=== PATIENT | male | born 1950 | race Caucasian/White ===

== ENCOUNTER → 2016-09-22 | Outpatient (CLI) | payer BC ==
[~2016-09-22] MED LIST: ERGO1CAP35 PO
[2016-09-22 13:15] LABS: BLOOD UREA NITROGEN 12 mg/dl (7-18); BUN/CREATININE RATIO 13.2 (10-20); CALCIUM 8.5 mg/dl (8.5-10.1); CARBON DIOXIDE 31 mmol/L (21-32); CHLORIDE 106 mmol/L (98-107); CREATININE 0.91 mg/dl (0.60-1.40); GLUCOSE 108 mg/dl (70-99); POTASSIUM 4.2 mmol/L (3.5-5.1); SODIUM 141 mmol/L (136-145)
[2016-09-22 13:18] LABS: CHOLESTEROL 127 mg/dl (0-200); CHOLESTEROL/HDL RATIO 2.8; HDL CHOLESTEROL 46 mg/dl; LDL CHOLESTEROL CALCULATED 59 mg/dl; TRIGLYCERIDES 112 mg/dl (0-150); VERY LOW DENSITY LIPOPROT CALC 22 mg/dl
== END | disposition home or self-care (01) ==
LOC: C.LABPVFM 08:09
PROVIDERS: ATTEND Nurse Practitioner
DX: G45.9 Transient cerebral ischemic attack, unspecified (principal); E78.5 Hyperlipidemia, unspecified; E55.9 Vitamin D deficiency, unspecified

== ENCOUNTER → 2016-12-03 | Outpatient (CLI) | payer BC ==
--- NOTE | 2016-12-03 13:07 | DIAGNOSTIC IMAGING REPORT ---
BILATERAL CAROTID DOPPLER STUDY HISTORY: Carotid stenosis I67.82 Chronic cerebral [id number] Carotid stenosis, asymptote COMPARISON: 03/29/2015 TECHNIQUE: Real-time, grayscale, and color Doppler sonography of the carotid arteries was performed. Imaging reviewed in the transverse and longitudinal planes. All measurements were calculated based on NASCET criteria. FINDINGS: Antegrade flow is seen in the bilateral vertebral arteries. The brachial pressures are hemodynamically similar. Moderate plaque formation bilaterally The peak systolic velocity within the right ICA is 151. The right systolic ratio is 1.5. The peak systolic velocity within the left ICA is 106. The left systolic ratio is 1.1. IMPRESSION: 1. 40-50 % narrowing right internal carotid artery. 2. Moderate narrowing right and left external carotid artery. 3. Findings are slightly progressive compared to the prior study 2014 Electronically signed by: Saul Sage M.D. 12/03/2016 1:06 PM Dictated Date/Time: 12/03/2016 12:56 PM
== END | disposition home or self-care (01) ==
LOC: C.ULTR 12:14
PROVIDERS: ATTEND Nurse Practitioner
DX: I65.21 Occlusion and stenosis of right carotid artery (principal); I67.82 Cerebral ischemia

== ENCOUNTER → 2017-05-22 | Outpatient (CLI) | payer BC ==
[2017-05-22 13:53] LABS: LYME DISEASE AB IGG POS (NEG); LYME DISEASE AB IGM POS (NEG)
== END | disposition home or self-care (01) ==
LOC: C.LABPVFM 07:58
PROVIDERS: ATTEND Nurse Practitioner Family
DX: M25.511 Pain in right shoulder (principal)

== ENCOUNTER → 2017-08-30 | Outpatient (CLI) | payer BC ==
[2017-08-30 18:02] LABS: BLOOD UREA NITROGEN 11 mg/dl (7-18); CALCIUM 8.8 mg/dl (8.5-10.1); CARBON DIOXIDE 27 mmol/L (21-32); CREATININE 0.92 mg/dl (0.60-1.40); GLUCOSE 90 mg/dl (70-99); SODIUM 139 mmol/L (136-145)
[2017-08-30 18:04] LABS: CHOLESTEROL 122 mg/dl (0-200); LDL CHOLESTEROL CALCULATED 52 mg/dl
== END | disposition home or self-care (01) ==
LOC: C.LABPVFM 15:22
PROVIDERS: ATTEND Nurse Practitioner
DX: H93.19 Tinnitus, unspecified ear (principal); E78.5 Hyperlipidemia, unspecified

== ENCOUNTER 2022-07-31 06:51 | Inpatient (IN) ==
--- NOTE | 2022-07-26 09:06 | Anesthesiology Consultation ---
Date of Service July 26, 2022 Assessment & Plan (1) Encounter for pre-operative examination: Plan - I contacted pt and he denies visual changes, dizziness, lightheadedness, numbness, weakness, speech changes. Case discussed with Dr. Molina in detail who advised pt is acceptable to proceed at current status without requiring further evaluation, testing or intervention from his standpoint. - COVID screening: Per armoured car escort on 07/26/2022: Travel screen negative, no known COVID-19 positive contacts or current COVID-19 related symptoms in past 2 weeks. To surgeon's discretion if preop COVID testing is needed. Chart Review Chart Review: Acceptable Risk for Surgery and Patient NOT seen in Pre Admission Testing History Surgery Operation Date: 07/31/22 07:30 Proposed Procedures p Robotic Laparoscopic Assisted Radical Retropubic Prostatectomy, Possible OPen Possible Pelvic Lymph Node Dissection - Yared Ortiz MD Height/Weight Height: 5 ft 11 in Weight: 95.254 kg Allergies Allergy/AdvReac Type Severity Reaction Status Date / Time No Known Drug Allergies Allergy Verified 07/26/22 08:03 Medications Home Medications Medication Instructions Recorded Confirmed Last Taken multivitamin 1 tab PO QAM 12/26/18 07/26/22 Unknown aspirin 81 mg tablet,delayed 81 mg PO QAM 03/04/19 07/26/22 Unknown release ascorbic acid (vitamin C) 500 mg 500 mg PO QAM 09/26/20 07/26/22 Unknown tablet (Vitamin C) atorvastatin 80 mg tablet 80 mg PO QAM 07/26/22 07/26/22 Unknown clopidogrel 75 mg tablet 75 mg PO QAM 07/26/22 07/26/22 Unknown Past Medical History Medical History (Updated 07/26/22 @ 09:02 by Jade Castellano PA-C) Acid reflux hx of and resolved Asymptomatic stenosis of right carotid artery > 70% stenosis right ICA 02/16/22 doppler, < 50% stenosis right ICA 04/02/22 doppler Basal cell carcinoma MOHS to right side of nose x2 Hx-TIA (transient ischemic attack) 2014, no f/u no residual Hyperlipidemia Lumbar pain with radiation down right leg Prostate cancer Sciatic leg pain Right leg Sensorineural hearing loss (SNHL) of both ears Past Family History Family History Mother Breast cancer Colorectal cancer Father Hearing loss Other No family history of adverse response to anesthesia No family history of bleeding disorder Denies family history of Ovarian cancer Prostate cancer Myocardial infarction Past Surgical History Surgical History (Updated 07/26/22 @ 08:10 by Brie Vo RN) History of colonoscopy History of oral surgery tooth extractions History of prostate biopsy History of tonsillectomy Social History Smoking Status: Former smoker tobacco type: cigarettes Do You Dip or Chew Tobacco: No Smoking End Date: 4 yrs ago Hx Alcohol Use: Yes Alcohol type: beer alcohol intake frequency: 0-2 drinks per day Hx Substance Use: No substance use type: does not use Lab Results Anesthesia Preop Results Results Anesthesia Widget: WBC 7.90 K/ul (4.8-10.8) 07/23/22 Hgb 14.6 g/dl (14.0-18.0) 07/23/22 Hct 42.0 % (42.0-52.0) 07/23/22 Plt 201 K/uL (130-400) 07/23/22 Na 139 mmol/L (136-145) 07/23/22 K 4.2 mmol/L (3.5-5.1) 07/23/22 Cl 106 mmol/L (98-107) 07/23/22 CO2 29 mmol/L (21-32) 07/23/22 BUN 16 mg/dl (6-23) 07/23/22 Creat 0.87 mg/dl (0.6-1.4) 07/23/22 Glucose Level 84 mg/dl (70-99(Fasting)) 07/23/22 Testing Electrocardiogram Date: 02/05/22 Sinus bradycardia with 1st degree AV block, rate 57 bpm Incomplete RBBB Chest X-Ray Date: 07/23/22 Lung volumes are normal. Lungs are clear. There is no pneumothorax or pleural effusion. Cardiac size is normal. Mediastinal contours are normal. There is no evidence for pulmonary edema. Underlying emphysema is better depicted on prior CT. IMPRESSION: No acute cardiopulmonary findings. Stress Test Date: 03/06/22 Exercise METS 6 MPHR 89% Normal without evidence of inducible ischemia Mild cLVH Stage I diastolic dysfunction No significant valvular disease Other Testing Abdomen pelvis CT 06/26/22 Lung bases: The heart is normal in size and without pericardial effusion. The coronary arteries with densely calcified. Emphysematous change is seen at the lung bases. The lung bases are otherwise clear. Liver: The contrast-enhanced liver is normal in size, contour, and attenuation. There is no intrahepatic biliary ductal dilatation. The hepatic veins and portal veins are patent. Scattered subcentimeter hepatic hypodensities likely represent cysts but are too small for definitive characterization. Kidneys and ureters: The contrast enhanced kidneys are normal in size and without hydronephrosis. No renal calculi are identified on the unenhanced series and there is no ureteral stone. The kidneys enhance and excrete symmetrically. There is no enhancing renal cortical mass lesion identified. There is no evidence of urothelial lesion within the renal pelvis bilaterally or along the course of either ureter. Abdominal vasculature: The abdominal aorta is normal in course and caliber note a moderate to advanced atherosclerotic calcification. Bowel: There is moderate colonic fecal retention. No bowel obstruction is seen. There is moderate colonic diverticulosis without CT evidence of acute diverticulitis. The appendix is well-visualized and normal. Peritoneum: There is no intraperitoneal free air or abdominal ascites. There is a small fat-containing umbilical hernia. Lymphadenopathy: No pathologically enlarged lymph nodes are clearly identified in the abdomen or pelvis. There is a 10 mm indeterminate right pelvic sidewall node seen on image #[id number]. Pelvic viscera: The prostate gland is enlarged and heterogeneous. The bladder wall appears thickened/trabeculated indicating chronic outlet obstruction. A small fat-containing left inguinal hernia is noted. Skeletal structures: The skeletal structures are osteopenic. Mild to moderate lumbosacral spondylosis is observed. No lytic or blastic lesions are seen. IMPRESSION: 1. There is no definitive evidence of metastatic disease in the abdomen or pelvis. 2. A 10 mm right pelvic sidewall lymph node is pathologically indeterminate. Attention at follow-up is recommended. 3. The prostate gland is enlarged and heterogeneous. 4. There is evidence of chronic bladder outlet obstruction. 5. Emphysema. 6. Unremarkable CT urogram assessment of the kidneys and ureters. 7. Colonic diverticulosis without CT evidence of acute diverticulitis. 8. Additional findings as above. Bone scan 06/26/22 No evidence of skeletal metastases. Carotid doppler 04/02/22 Less than 50% stenosis bilat ICAs Carotid doppler 02/16/22 > 70% stenosis right ICA < 50% stenosis left ICA CT lung 02/14/22 1. Emphysema. 2. Scattered pulmonary nodules/opacities measuring up to 10 mm. These are pathologically indeterminant and a six-month follow-up examination is recommended for reassessment. 3. There is no airspace consolidation or pleural effusion. 4. Advanced coronary artery calcification.
[~2022-07-31 06:51] MED LIST changes: -ERGO1CAP35 PO; +HEPARIN SOD 5,000 UNIT/0.5 ML VIAL SQ SCH; +LR 15ML/HR IV SCH
[2022-07-31] MEDS ORDERED: ROCURONIUM BROMIDE 10 MG/ML 5 ML VIAL IV ONE ×7 (07:02→10:50)
[2022-07-31] MEDS ORDERED: LIDOCAINE 2% 2 ML VIAL/AMP(20MG/ML) INFIL ONE ×2 (07:02→07:03)
[2022-07-31] MEDS ORDERED: fentaNYL citrate 100 MCG/2 ML VIAL ONE (07:02)
[2022-07-31] MEDS ORDERED: PROPOFOL IV EMULSION 10 MG/ML 20 ML VIAL IV ONE (07:02)
[2022-07-31] MEDS ORDERED: DEXAMETHASONE SOD INJ 4 MG/ML VIAL ONE (07:02)
--- NOTE | 2022-07-31 07:50 | History & Physical Bridge Note ---
Date of Service July 31, 2022 History & Physical Bridge Note I have examined the patient, reviewed the History & Physical and in the interval since the performance of the History & Physical I have noted the following changes of clinical significance: no changes noted
[2022-07-31] MEDS ORDERED: BUPIVACAINE 0.5 % 5 MG/1 ML MPF 30ML VIAL ONE (07:59)
[2022-07-31] MEDS ORDERED: ePHEDrine sulfate 50 MG/ML AMP IV PRN (08:00)
[2022-07-31] MEDS ORDERED: ONDANSETRON INJ 2 MG/ML 2 ML VIAL IV PRN ×2 (08:00→13:11)
[2022-07-31] MEDS ORDERED: ATROPINE SULFATE 0.1 MG/ML 10ML SYR IV PRN (08:00)
[2022-07-31] MEDS ORDERED: ePHEDrine sulfate 50 MG/ML AMP ONE (08:41)
[2022-07-31] MEDS ORDERED: NEOSTIGMINE METHYLSULFATE 1 MG/ML 10ML VIAL ONE (11:12)
[2022-07-31] MEDS ORDERED: ONDANSETRON INJ 2 MG/ML 2 ML VIAL ONE (11:12)
[2022-07-31] MEDS ORDERED: GLYCOPYRROLATE 0.2 MG/ML VIAL ONE (11:12)
--- NOTE | 2022-07-31 11:24 | Operative Report ---
PG Post Operative Report Pre & Post Diagnosis Operation Date: 07/31/22 08:35 Pre-Op Diagnosis: Prostate Cancer Post-Op Diagnosis: Prostate Cancer I identified the patient and participated in the time-out.: Yes Procedure Operation Date: 07/31/22 08:35 Actual Procedures p Robotic Laparoscopic Assisted Radical Retropubic Prostatectomy, Pelvic Lymph Node Dissection(Not Applicable) - Yared Ortiz MD Surgeon Yared Ortiz MD Homebirth Midwife Mercedes Coronado Estimated Blood Loss 25 Findings Consistent with Post-Op Diagnosis Specimens 1. Periprostatic fat 2. Right pelvic lymph nodes 3. Left pelvic lymph nodes 4. Prostate and seminal vesicles Description of Procedure The patient was identified in the preoperative holding area, appropriate informed consents were reviewed and completed, and he was transported to the operating suite. Subcutaneous heparin was administered in the pre-operative holding area. Upon arrival in the operating suite, he received appropriate antibiotics and general anesthesia. He was positioned in dorsal lithotomy, a B&O suppository was inserted after digital rectal exam, and he was prepped and draped in standard fashion. A Brownlee catheter was inserted in the sterile field. A Veress needle was passed per umbilicus with uniform insufflation of the abdomen to 15mmHg. He was placed in steep Trendelenburg position. A periumbilical incision was then made to accommodate a 12mm Visiport with 10mm 0degree laparoscope. Inspection of the abdomen was carried out, and there was no evidence of traumatic entry or injury secondary to the Veress needle. After confirming a clear anterior abdominal wall, ports were subsequently placed in standard robotic prostatectomy fashion without incident. To begin the robotic portion of the case, the left lateral aspect of the sigmoid was mobilized off of the left pelvic side wall to allow the pouch of Umer to be appropriately visualized. I then made an incision in the pouch of Umer, overlying the seminal vesicles. Both SVs as well as the ampullae of the vasa were entirely dissected, with the vasa transected 3cm from the prostate. The medial umbilical ligaments were then controlled with bipolar electrocautery just inferior to the umbilicus. Following cauterization, they were divided utilizing monopolar cautery. A peritoneal incision was carried from this location to the medial aspect of the internal inguinal rings bilaterally with care to avoid opening through the ring. This incision was concluded when the vas deferens was reached. Dissection of the bladder and prostate off of the posterior aspect of the pubic arch was completed allowing full visualization of the prostate. The fat overlying the prostate was removed en bloc and passed off the table as a specimen labeled "periprostatic fat". The endopelvic fascia was cleared during this portion of the procedure, and subsequently opened - first on the right and then the left. The incision through the endopelvic fascia began near the prostate-bladder junction and was carried to the apex with extreme care to preserve all lateral levator musculature as well as the periurethral musculature and sphincter complex. I additionally preserved the puboprostatic ligaments. I then controlled the DVC with a 3-0 V-lock suture in overlapping/figure of 8 fashion. The lymph node dissection was then conducted. External iliac vessels were identified on the pelvic side wall. The packet of fat and lymphatic tissue that resides just under the iliac vein was elevated and off of the vein with a split and roll technique. The packet was dissected laterally to the circumflex vein and distally to the obturator nerve which was preserved. Given his high risk disease, I continued the dissection towards the common iliac vein and concluded the dissection upon reaching that landmark. TA combination of monopolar and bipolar cautery were used to assist with control. After completing the dissection on both sides, the packets were collected and passed off of the table as specimens labeled "pelvic lymph nodes". My attention then returned to the prostate, with identification of the bladder neck aided by gentle traction on the Brownlee catheter and lateral to medial pressure at the presumed level of the bladder neck with the robotic instruments. An anterior cystotomy was made, the Brownlee balloon deflated and the catheter guided through the incision to allow anterior retraction. I attempted to preserve maximal bladder neck musculature as I circumferentially dissected around the bladder neck. After incision through the posterior aspect of the mucosa, the dissection was carried through detrusor muscle until the bilateral ampullae of the vasa were identified. The previously dissected vasa and SVs were brought through the incision and used to elevated the prostate anteriorly. A posterior plane behind the prostate was then developed - splitting Denonvilliers's fascia. This dissection was carried as far as possible towards the apex as well as far as possible laterally. An incision in the lateral prostatic fascia was then made bilaterally to facilitate control of the vascular pedicles. Given his disease state, nerve sparing was not performed aggressively. The pedicles were controlled with a combination of bipolar and monopolar electrocautery and no clips were used. The apical attachments of the prostate were remaining at that stage. The DVC was divided after control with bipolar cautery over the prostate. Continuous inspection from anterior and lateral views allowed me to closely follow the apical contour of the prostate and maximally preserve urethral length and tissue. The prostate was entirely freed at that point, and collected in an EndoCatch bag before being moved out of the field of vision. Hemostasis was confirmed. Inspection of the bladder neck revealed the ureteral orifices to be relatively close to the incision. Bladder neck was also somewhat larger than the urethral lumen, I elected to perform bladder neck reconstruction utilizing a 3 oh V-Loc suture with yhyxjo-oy-eghgi stitches placed on each lateral aspect with care to avoid encroachment upon the UOs. Anastomosis of the bladder and urethra was then completed utilizing a double armed V-Lock stitch. A new Brownlee catheter was inserted and the anastomosis tested with irrigation. There was a small leak posteriorly. This was not in a location where I could repair it, but was small enough just to leave a Brownlee and a drain. A jean-pierre style stitch was placed bilaterally to functionally marsupialize the area of the lymph node dissection. A YESIKA drain was guided into the left lateralmost robotic port. The robot was undocked, the specimen extracted through expansion of the gayatri- umbilical camera port. The fascia was closed with a series of 0-PDS figure of 8 stitches. The right food and beverage assistant manager port was closed in two layers - with a figure of 8 0-Vicryl to reapproximate the fascia followed by 4-0 Monocryl to close the skin. Monocryl was used to close all other skin incisions. All wounds were dressed with Dermabond. The case was concluded and the patient taken to the PACU in stable condition. Mercedes Coronado assisted from incision to closure. I attest to the content of the Intraoperative Record and any orders documented therein. Any exceptions are noted below.
[2022-07-31] MEDS: fentaNYL citrate 100 MCG/2 ML VIAL IV PRN ×2 (11:40→11:50)
[2022-07-31 12:05] LABS: Basophils # (auto) 0.03 K/uL (0-0.2); Basophils % (auto) 0.3 %; Eosinophils # (auto) 0.02 K/uL (0-0.50); Eosinophils % (auto) 0.2 %; Hematocrit (blood only) 41.7 % (42.0-52.0); Hemoglobin 14.3 g/dl (14.0-18.0); Immature Granulocytes # (auto) 0.03 K/uL (0.01-0.20); Immature Granulocytes % (auto) 0.3 %; Lymphocytes # (auto) 1.09 K/uL (1.2-3.4); Lymphocytes % (auto) 9.1 %; Mean Corpuscular Hemoglobin 30.8 pg (25.0-34.0); Mean Corpuscular Hgb Conc 34.3 g/dL (32.0-36.0); Mean Corpuscular Volume 89.9 fL (80.0-100.0); Monocytes # (auto) 0.18 K/uL (0.11-0.59); Monocytes % (auto) 1.5 %; Neutrophils # (auto) 10.65 K/uL (1.40-6.50); Neutrophils % (auto) 88.6 %; Platelet Count 198 K/uL (130-400); RDW Coefficient of Variation 11.9 % (11.5-14.5); RDW Standard Deviation 38.9 fL (36.4-46.3); Red Blood Count 4.64 M/uL (4.70-6.10)
--- NOTE | 2022-07-31 12:10 | Anesthesiology Progress Note ---
Date of Service July 31, 2022 Anesthesia Post Procedure Vital Signs Vital Signs: Temp Pulse Pulse Resp BP BP Pulse Ox 07/31/22 12:05 69 12 135/65 94 07/31/22 11:55 61 12 143/62 H 96 07/31/22 11:45 62 14 141/61 H 98 07/31/22 11:35 53 L 12 139/59 L 97 07/31/22 11:27 96.8 F L 58 L 16 148/70 H 96 07/31/22 07:27 97.9 F 71 20 153/76 H 99 O2 Del Method O2 Flow Rate 07/31/22 12:05 Nasal Cannula 2 07/31/22 11:55 Oxymask 4 07/31/22 11:45 Oxymask 4 07/31/22 11:35 Oxymask 8 07/31/22 11:27 Oxymask 8 07/31/22 07:27 Room Air Pain Intensity Abdomen: Pain Intensity: 4 Transfer of Care Handoff Completed per policy Notes Mental Status: alert / awake / arousable and participated in evaluation Patient Amnestic to Procedure: Yes Nausea / Vomiting: adequately controlled Pain: adequately controlled Airway Patency, RR, SpO2: stable & adequate BP & HR: stable & adequate Hydration State: stable & adequate Anesthetic Complications: no major complications apparent and Pt Satisfied with anesthetic care
[2022-07-31 12:21] LABS: BUN Creatinine Ratio 13.5 (10-20); Calcium 8.5 mg/dl (8.5-10.1); Creatinine Clr Calc Pharmacy 90.4 ml/min; Est GFR (Non-African American) 85.4 ml/min; Potassium 4.4 mmol/L (3.5-5.1)
[2022-07-31] MEDS ORDERED: MoRPHine SULFATE 4 MG/ML 1 ML CARP\\VIAL IV PRN (13:11)
[2022-07-31] MEDS ORDERED: MoRPHine SULFATE 2 MG/ML CARP IV PRN (13:11)
[2022-07-31] MEDS ORDERED: oxyCODONE HCL IR 5 MG TAB (IMMEDIATE RELEASE) PO PRN ×2 (13:11)
[2022-07-31] MEDS: LACTATED RINGER'S 1,000 ML IV SCH ×2 (13:15→22:59)
[2022-07-31] MEDS: ACETAMINOPHEN 325 MG TAB PO SCH ×2 (14:29→19:59)
--- NOTE | 2022-07-31 15:54 | Communication Note ---
Date of Service: July 31, 2022 Reached out by urology team regarding persistent eye pain postoperatively. Patient states he has continued/consistent bilateral eye pain after waking up from prostate surgery. Patient states pain is stinging/burning with sensitivity to light without other vision changes. EOM intact, no redness or obvious abrasion noted on exam. Consulted with senior controls technician certified medical assistant who recommended continued eye lubrication with artificial tears overnight and to reach out tomorrow morning if pain persists.
[2022-07-31] MEDS: ceFAZolin 2000MG 2,000 MG/15 ML SYR IV SCH (16:28)
[2022-07-31] MEDS: HEPARIN SOD 5,000 UNIT/0.5 ML VIAL SQ SCH (19:59)
[2022-07-31] MEDS: DOCUSATE SODIUM 100 MG CAP PO SCH (19:59)
[2022-07-31] MEDS: ARTIFICIAL TEARS OP PRN ×2 (20:00→23:08)
[2022-08-01] MEDS: ACETAMINOPHEN 325 MG TAB PO SCH ×2 (01:17→08:23)
[2022-08-01] MEDS: ceFAZolin 2000MG 2,000 MG/15 ML SYR IV SCH (01:17)
[2022-08-01] MEDS: DOCUSATE SODIUM 100 MG CAP PO SCH (08:23)
[2022-08-01] MEDS: HEPARIN SOD 5,000 UNIT/0.5 ML VIAL SQ SCH (08:24)
[2022-08-01 08:26] LABS: Basophils # (auto) 0.02 K/uL (0-0.2); Basophils % (auto) 0.1 %; Eosinophils # (auto) 0.03 K/uL (0-0.50); Eosinophils % (auto) 0.2 %; Hematocrit (blood only) 41.4 % (42.0-52.0); Hemoglobin 14.3 g/dl (14.0-18.0); Immature Granulocytes # (auto) 0.06 K/uL (0.01-0.20); Immature Granulocytes % (auto) 0.4 %; Lymphocytes # (auto) 2.39 K/uL (1.2-3.4); Lymphocytes % (auto) 16.4 %; Mean Corpuscular Hemoglobin 31.3 pg (25.0-34.0); Mean Corpuscular Hgb Conc 34.5 g/dL (32.0-36.0); Mean Corpuscular Volume 90.6 fL (80.0-100.0); Mean Platelet Volume 10.3 fL (9.4-12.4); Monocytes # (auto) 1.23 K/uL (0.11-0.59); Monocytes % (auto) 8.4 %; Neutrophils # (auto) 10.84 K/uL (1.40-6.50); Neutrophils % (auto) 74.5 %; Platelet Count 227 K/uL (130-400); RDW Coefficient of Variation 11.9 % (11.5-14.5); RDW Standard Deviation 39.5 fL (36.4-46.3); Red Blood Count 4.57 M/uL (4.70-6.10); White Blood Count 14.57 K/ul (4.8-10.8)
[2022-08-01 08:42] LABS: BUN Creatinine Ratio 14.3 (10-20); Calcium 8.7 mg/dl (8.5-10.1); Creatinine Clr Calc Pharmacy 88.4 ml/min; Est GFR (African American) 97.2 ml/min; Est GFR (Non-African American) 83.9 ml/min; Potassium 3.7 mmol/L (3.5-5.1)
[2022-08-01] MEDS ORDERED: ATORVASTATIN 40 MG TAB PO SCH (09:00)
[2022-08-01] MEDS ORDERED: MULTIVITAMIN TAB PO SCH (09:00)
[2022-08-01] MEDS ORDERED: ASCORBIC ACID 500 MG TAB PO SCH (09:00)
[2022-08-01] MEDS ORDERED: ASPIRIN 81 MG ECTAB PO SCH (09:00)
--- NOTE | 2022-08-01 09:24 | Urology Progress Note ---
Date of Service August 01, 2022 Assessment & Plan (1) Prostate cancer: Plan: Postop day #1 status post prostatectomy Progression appropriate Plan for discharge home later today Drain removal Admission and Anticipated Discharge Date Admission Date: July 31, 2022 Subjective Doing very well this morning He was having severe bilateral eye pain yesterday but this is largely resolved today Clear urine Ambulating Minimal discomfort Modest drain output Overall feels very well and is anxious to go home Physical Exam Physical Exam: Incisions very appropriate Urine clear YESIKA serosanguineous Results & Data ([facility]) Vital Signs (Past 12 Hours) Vital Signs Temp Pulse Resp BP Pulse Ox O2 Del Method 08/01/22 07:00 36.7 C 66 18 141/74 H 96 Room Air 08/01/22 03:56 36.6 C 61 18 151/69 H 97 Room Air 07/31/22 23:40 36.9 C 83 20 134/69 97 Room Air PG Care Time/CCT Total # of Minutes Spent Total Time Spent with Patient: Total time spent is greater than 50% in coordination of care (as documented) at patient's floor/unit and/or counseling patient: Coding Level of Care Code None Diagnoses Prostate cancer C61
--- NOTE | 2022-08-01 12:10 | Discharge Summary ---
Date of Service August 01, 2022 Admission HPI Per Admitting Provider Patient with prostate cancer here for scheduled robotic Laparoscopic Assisted Radical Retropubic Prostatectomy, Pelvic Lymph Node Dissection. Admission Exam Per Admitting Provider Constitutional well developed and well nourished Neck neck nontender Respiratory normal respiratory effort; no respiratory distress and does not use accessory muscles Cardiovascular Rate/Rhythm: regular rate Vessels: radial pulses present Extremities: no edema Gastrointestinal (Abdomen) Inspection/Auscultation: abdomen normal to inspection Percussion/Palpation: abdomen soft; abdomen nontender and no guarding Musculoskeletal Head/Neck/Chest: normocephalic and head atraumatic Extremities: extremities normal to inspection Skin no rashes and no lesions Trauma: no evidence of skin trauma Neurologic awake; not obtunded Speech / Cognition: normal speech Motor/Sensory: no tremor Psychiatric Orientation: alert and oriented x 3 Genitourinary no CVA tenderness Lymphatic no lymphadenopathy Principal Diagnosis Prostate cancer Discharge Exam Constitutional well developed and well nourished; no acute distress Respiratory normal respiratory effort; no respiratory distress and no labored breathing Cardiovascular Extremities: no pedal edema Gastrointestinal (Abdomen) Inspection/Auscultation: abdomen normal to inspection; abdomen not distended Skin Surgical incisions healthy, well approximated. YESIKA drain with serosanguinous output. Psychiatric Orientation: alert and oriented x 3 Genitourinary Brownlee patent and draining clear yellow urine Discharge Data Allergies Allergy/AdvReac Type Severity Reaction Status Date / Time No Known Drug Allergies Allergy Verified 07/31/22 07:22 Procedures Performed Operation Date: 07/31/22 08:35 Actual Procedures p Robotic Laparoscopic Assisted Radical Retropubic Prostatectomy, Pelvic Lymph Node Dissection(Not Applicable) - Yared Ortiz MD Hospital Course (1) Prostate cancer: Postop day #1 status post prostatectomy Progression appropriate Plan for discharge home later today Drain removal Patient reassessed at 1100 - Patient progressing as expected. Tolerating regular diet. Pain is controlled. Patient is ready for discharge now with Brownlee catheter. YESIKA drain removal prior to discharge. Discharge orders placed. He can resume Plavix on 08/03. Expected clinical course reviewed, all questions answered. Total Time Total Time Spent Total Time Spent (In Minutes): 29 Discharge Plan Discharge Items Patient Disposition: Home - Self-Care Reason For Visit: Prostate Cancer Discharge Diagnosis: Prostate Cancer Activity: Per Instructions section Lifting: No more than 25 pounds Bathing Comment: Okay to shower after discharge, no tub bath or soaking Sexual Activity: Wait until after follow-up appointment Exercise/Sports: Wait until after follow-up appointment Driving/Machine Use: No driving while taking prescription pain medication Non-emergency contact: Surgeon and Urologist Call non-emergency contact if: your pain is worsening, you have a fever, your wound has increased redness, your wound has increased drainage and your wound pain has increased Follow-up/Referrals: Delia Corey CRNP [Primary Care Provider] - 08/07/22 10:30 am Diet: Regular Addtl Attending Provider Instructions: Please take all medications as prescribed and keep all follow-ups as scheduled. Please call our office at [phone] with any questions, concerns or need to reschedule appointments for any reason. We are happy to assist you. You can resume your daily aspirin now. You can resume your Plavix on Thursday 08/03. An antibiotic was sent to your pharmacy - start this antibiotic 1 day prior to your scheduled catheter removal. Pain medication was sent to take as needed for breakthrough pain. It contains Acetaminophen (Tylenol). Do not exceed 3000 mg of Tylenol in 24 hours. Activity: We recommend having someone with you for the first few days after surgery to help care for you. For the first 2 weeks after surgery, we would like you to get up and walk around your house. However, we recommend limit physical activity that would increase your heart rate. This will allow your body to rest and heal. Take naps if you feel tired. Don't lift anything heavier than 10 pounds, mow the law or ride a bicycle until your follow-up appointment. Please avoid long car rides. Home Care: Unless directed otherwise, drink 6 to 8 glasses of water a day (enough to keep your urine light colored). This will also help keep a healthy flow of urine. We recommend using a stool softener for the first two weeks to avoid constipation. Brownlee Catheter or Suprapubic Catheter care: Keep the catheter well secured with either a leg back or leg strap with large bag. Empty your bag when it's about half full. You may notice some blood in the bag. This is normal after surgery and while the catheter is in place. Use mild soap (such as Dove or Dial) and water to wash the catheter and the head of your penis daily, or more frequently if needed. Return to your normal diet, we encourage good protein intake to promote healing. You may shower as normal. Please avoid tub baths or soaking until catheter removed and incisions well healed. Wearing sweat pants while you have the catheter is recommended, they will be more comfortable. Follow-up Your follow up appointments for having your catheter removed, and follow up with your physician should already be scheduled. If you have any questions regarding this, please contact our office. Your final pathology report will be discussed at your physician follow-up appointment. Call [facility] at [phone] right away if you have any of the following: Chest pain or trouble breathing (call 911 or go to the hospital) Fever of 101F or higher, uncontrolled vomiting Heavy bleeding, clots, or bright red blood from the catheter Catheter that falls out or stops draining Foul-smelling discharge from your catheter Redness, swelling, warmth, or increased pain at your incision site Drainage, pus, or bleeding from your incision Pending Studies at Discharge: Yes (pathology) Stand-Alone Forms: My [facility] [employer], Smoking Cessation Medications and DC Order Prescriptions: New sulfamethoxazole-trimethoprim [Bactrim DS] 800-160 mg tablet 1 tab PO BID Qty: 6 0RF Rx Instructions: Start 1 day prior to catheter removal oxycodone-acetaminophen [Percocet] 5-325 mg tablet 1 tab PO TID PRN (Reason: pain) Qty: 10 0RF docusate sodium [Colace] 100 mg capsule 100 mg PO BID Qty: 60 0RF Rx Instructions: Take twice daily for 2 weeks, then as needed for constipation. Continued ascorbic acid (vitamin C) [Vitamin C] 500 mg Tablet 500 mg PO QAM multivitamin tablet 1 tab PO QAM aspirin 81 mg tablet,delayed release (DR/EC) 81 mg PO QAM atorvastatin 80 mg tablet 80 mg PO QAM Rx Instructions: pt aware dose change clopidogrel 75 mg tablet 75 mg PO QAM Discharge Orders: Discharge Order (Routine); Ordered 08/01/22 Ordered By: Mercedes De Guzman/Other Patient Handouts: Urinary Catheter Bag Empty Clean, Leg Bag Care Dc, Brownlee Catheter Male Ch Admission Data Admit Date/Time: 07/31/22 11:22 Attending Provider: Yared Ortiz Admit Provider: Yared Ortiz Primary Care Provider: Delia Corey Other Interventions: Discharge Summary Assessment (RN) Last Done: 08/01/22 13:17 Coding Level of Care Code HOSP INP/OBS DISCH 30 MIN/LESS Diagnoses Prostate cancer C61 Time Spent (min) 29
== END 2022-08-01 14:35 | disposition home or self-care (01) | DRG 708 ==
LOC: ASU 06:51 → 3W 11:22